=== PATIENT | male | born 1965 | race Caucasian/White ===

== ENCOUNTER 2024-06-06 09:28 | Emergency (ER) | payer OTHER ==
[~2024-06-06] VITALS: Ht 152.4 cm; Wt 88.5 kg
[2024-06-06 10:07] VITALS: PULSE 98; RESP 18; TEMP 98
[2024-06-06] MEDS ORDERED: CEPHALEXIN500 MG PO (11:04)
[2024-06-06] MEDS ORDERED: CEPHALEXIN MONOHYDRATE 250 MG CAP ONE (11:13)
[2024-06-06] MEDS ORDERED: MUPIROCIN22 GM TOP (11:13)
[2024-06-06] MEDS ORDERED: BACTRIM DS TAB1 EACH PO (11:17)
[2024-06-06] MEDS: KETOROLAC TROMETHAMINE 30 MG/ML VIAL IM STA (11:21)
[2024-06-06] MEDS: TETANUS/DIPHTHERIA TOX ADULT 0.5 ML SYR IM ONE (11:23)
[2024-06-06] MEDS: CEPHALEXIN 500 MG CAP PO SCH (11:23)
[2024-06-06 11:35] VITALS: BP 121/65; PULSE 71; RESP 18; TEMP 98.9; O2SAT 98
== END 2024-06-06 11:53 | disposition home or self-care (01) ==
LOC: FSED 10:07
DX: L03.012 Cellulitis of left finger (principal); M25.531 Pain in right wrist; I10 Essential (primary) hypertension; B20 Human immunodeficiency virus [HIV] disease
CPT/HCPCS: 73110; 87071; 87186; 87205; 90471; 90714; 99283; J1885

== ENCOUNTER 2024-11-14 20:43 | Emergency (ER) | payer OTHER ==
[~2024-11-14] VITALS: Ht 177.8 cm; Wt 90.7 kg
[~2024-11-14 20:43] MED LIST: BACTRIM DS TAB1 EACH PO; CEPHALEXIN500 MG PO; MUPIROCIN22 GM TOP
[2024-11-14 20:53] VITALS: PULSE 98; RESP 18; TEMP 98.1
[2024-11-14] MEDS: KETOROLAC TROMETHAMINE 60 MG/2 ML VIAL IM ONE (21:55)
[2024-11-14] MEDS ORDERED: CIPRO500 MG PO (23:02)
[2024-11-14] MEDS ORDERED: ULTRAM 50MG50 MG PO (23:02)
[2024-11-14 23:13] VITALS: BP 147/92; PULSE 89; RESP 18; TEMP 98.2; O2SAT 100
== END 2024-11-14 23:15 | disposition home or self-care (01) ==
LOC: ER 20:56
DX: N50.811 Right testicular pain (principal); N43.3 Hydrocele, unspecified; I10 Essential (primary) hypertension; B20 Human immunodeficiency virus [HIV] disease
CPT/HCPCS: 76870; 93976; 99283; J1885

== ENCOUNTER 2025-01-22 17:15 | Emergency (ER) | payer OTHER ==
[~2025-01-22] VITALS: Ht 177.8 cm; Wt 88.5 kg
[~2025-01-22 17:15] MED LIST changes: +CIPRO500 MG PO; +ULTRAM 50MG50 MG PO
[2025-01-22 17:24] VITALS: TEMP 98.3
[2025-01-22] MEDS ORDERED: LIDOCAINE HCL 1% 2 ML AMP ONE ×2 (17:59→18:15)
[2025-01-22] MEDS: ALBUTEROL/IPRATROPIUM 3 ML NEB NEB ONE (18:06)
[2025-01-22] MEDS: CEFTRIAXONE 1 GM VIAL IM ONE (18:06)
[2025-01-22] MEDS ORDERED: CEFTRIAXONE 1 GM VIAL ONE (18:15)
[2025-01-22 18:24] VITALS: PULSE 91; RESP 20
[2025-01-22] MEDS ORDERED: TYLENOL325 MG PO (18:25)
[2025-01-22] MEDS ORDERED: DIPHENHYDRAMINE25 M2 PO (18:25)
[2025-01-22] MEDS ORDERED: LEVOFLOXACIN250 MG PO (18:25)
[2025-01-22] MEDS ORDERED: VENTOLIN HFA18 GM INH (18:25)
[2025-01-22 18:34] VITALS: PULSE 91; RESP 20; O2SAT 99
== END 2025-01-22 18:30 | disposition home or self-care (01) ==
LOC: FSED 17:25
DX: R06.00 Dyspnea, unspecified (principal); J06.9 Acute upper respiratory infection, unspecified; J20.9 Acute bronchitis, unspecified; R05.9 Cough, unspecified; Z11.52 Encounter for screening for COVID-19
CPT/HCPCS: 0223U; 71046; 87400; 99283; J0696; J2003